=== PATIENT | male | born 1975 | race Caucasian/White ===

== ENCOUNTER 2016-06-23 11:30 | Emergency (ER) | payer BC | END 2016-06-23 14:37 | disposition home or self-care (01) | LOC: ER 11:30 | DX: S81.801A Unspecified open wound, right lower leg, initial encounter (principal); F17.200 Nicotine dependence, unspecified, uncomplicated; X58.XXXA Exposure to other specified factors, initial encounter | CPT/HCPCS: 73590-RT; 99283 ==

== ENCOUNTER 2016-08-26 15:01 | Emergency (ER) | payer BC | END 2016-08-26 15:20 | disposition home or self-care (01) | LOC: ER 15:01 | DX: L25.9 Unspecified contact dermatitis, unspecified cause (principal); S80.921A Unspecified superficial injury of right lower leg, initial encounter; F17.200 Nicotine dependence, unspecified, uncomplicated | CPT/HCPCS: 96372; 99282 ==